=== PATIENT | female | born 1935 ===

== ENCOUNTER 2020-07-02 08:30 | Inpatient (IN) | payer OTHER ==
[~2020-07-02] VITALS: Ht 157.5 cm; Wt 72.6 kg
[2020-07-02] MEDS ORDERED: XARELTO PO (09:55)
[2020-07-02] MEDS ORDERED: COZAAR100 MG PO (09:55)
[2020-07-02] MEDS ORDERED: LITHATE20 MG PO (09:57)
[2020-07-02] MEDS ORDERED: GRALISE600 MG PO (09:57)
[2020-07-02] MEDS ORDERED: NEXIUM40 M1 PO (10:44)
[2020-07-09] MEDS ORDERED: XARELTO20 MG PO (10:14)
[2020-07-12] MEDS ORDERED: HYOSCYAMINE0.125 M1 SL (16:55)
[2020-07-12] MEDS ORDERED: OXYC1TAB9 PO (16:55)
== END 2020-07-12 17:41 | disposition home or self-care (01) | DRG 908 ==
LOC: SURH 07-09 08:30 → EDSEX 07-09 08:46 → SURG 07-09 08:46 → O/R 07-09 08:46 → SURG 07-09 15:45 → SURH 07-09 16:00 → SURG 07-09 18:42
PROVIDERS: ADMIT Colon & Rectal Surgery; ATTEND Colon & Rectal Surgery
PROC: 0DN80ZZ Release Small Intestine, Open Approach (ICD-10-PCS; 2020-07-09)
PROC: 3E0F7SF Introduction of Other Gas into Respiratory Tract, Via Natural or Artificial Opening (ICD-10-PCS; 2020-07-09)
PROC: 4A12X4Z Monitoring of Cardiac Electrical Activity, External Approach (ICD-10-PCS; 2020-07-09)
PROC: 0DB80ZZ Excision of Small Intestine, Open Approach (ICD-10-PCS; principal; 2020-07-09 16:00)
DX: T81.83XA Persistent postprocedural fistula, initial encounter (principal); K63.2 Fistula of intestine; J44.9 Chronic obstructive pulmonary disease, unspecified; I10 Essential (primary) hypertension; K66.0 Peritoneal adhesions (postprocedural) (postinfection)